=== PATIENT | female | born 1950 | race Hispanic/Latino ===

== ENCOUNTER 2018-11-27 11:33 | Emergency (ER) | payer MEDICARE, OTHER ==
[2018-11-27 12:29] VITALS: RESP 18; BMI 25.0
--- NOTE | 2018-11-27 12:42 | ED PDOC ---
Arrival/HPI - General Chief Complaint: Back Pain Time Seen by Provider: 11/27/18 11:55 Historian: Patient - History of Present Illness Narrative History of Present Illness (Text): 11/27/18 12:40 68yo female with pmhx of hypertension who present via EMS with complaint of lower back pain since last night. Notes pain started while laying down. Describes pain as crampy. No relieving/exacerbating factors. States she took a left over muscle relaxer from 5years ago this morning without relieve. She denies saddle anesthesia, focal weakness, urinary symptoms, hematuria, urinary/fecal incontinence, ripping/tearing upper back pain, Past Medical History - Provider Review Nursing Documentation Reviewed: Yes - Reproductive Menopause: Yes - Cardiac Hx Cardiac Disorders: Yes Hx Hypertension: Yes - Pulmonary Hx Respiratory Disorders: No - Neurological Hx Neurological Disorder: Yes Hx Dizziness: Yes - HEENT Hx HEENT Disorder: Yes Other/Comment: Use eyeglasses - Renal Hx Renal Disorder: No - Endocrine/Metabolic Hx Endocrine Disorders: Yes Hx Diabetes Mellitus Type 2: Yes - Hematological/Oncological Hx Blood Disorders: No - Integumentary Hx Dermatological Disorder: No - Musculoskeletal/Rheumatological Hx Fractures: Yes (left shoulder fx 08/04/16) - Gastrointestinal Hx Gastrointestinal Disorders: No - Genitourinary/Gynecological Hx Genitourinary Disorders: No - Psychiatric Hx Psychophysiologic Disorder: No Hx Substance Use: No - Surgical History Hx Orthopedic Surgery: Yes (right knee fracture) Other/Comment: gastric sleeve. - Anesthesia Hx Anesthesia: Yes Hx Anesthesia Reactions: No Hx Malignant Hyperthermia: No Family/Social History - Physician Review Nursing Documentation Reviewed: Yes Family/Social History: Unknown Family HX Smoking Status: Heavy Smoker > 10 Cigarettes Daily Hx Alcohol Use: No Hx Substance Use: No Allergies/Home Meds Allergies/Adverse Reactions: Allergies No Known Allergies Allergy (Verified 11/27/18 12:25) Review of Systems - Physician Review All systems were reviewed & negative as marked: Yes - Review of Systems Constitutional: Normal Eyes: Normal ENT: Normal Respiratory: Normal Cardiovascular: Normal Gastrointestinal: Normal Genitourinary Female: Normal Musculoskeletal: Back Pain Skin: Normal Neurological: Normal Endocrine: Normal Hemo/Lymphatic: Normal Psychiatric: Normal Physical Exam Vital Signs Reviewed: Yes Vital Signs Temp Pulse Resp BP Pulse Ox 11/27/18 11:34 98.3 F 74 18 161/75 H 100 Temperature: Afebrile Blood Pressure: Normal Pulse: Regular Respiratory Rate: Normal Appearance: Positive for: Well-Appearing, Non-Toxic, Comfortable Pain Distress: None Mental Status: Positive for: Alert and Oriented X 3 - Systems Exam Head: Present: Atraumatic, Normocephalic Pupils: Present: PERRL Extroacular Muscles: Present: EOMI Conjunctiva: Present: Normal Mouth: Present: Moist Mucous Membranes Neck: Present: Normal Range of Motion Respiratory/Chest: Present: Clear to Auscultation, Good Air Exchange. No: Respiratory Distress, Accessory Muscle Use Cardiovascular: Present: Regular Rate and Rhythm, Normal S1, S2. No: Murmurs Abdomen: No: Tenderness, Distention, Peritoneal Signs Back: Present: Normal Inspection, Midline Tenderness. No: Paraspinal Tenderness, Pain with Leg Raise Upper Extremity: Present: Normal Inspection. No: Cyanosis, Edema Lower Extremity: Present: Normal Inspection. No: Edema Neurological: Present: GCS=15, CN II-XII Intact, Speech Normal Skin: Present: Warm, Dry, Normal Color. No: Rashes Psychiatric: Present: Alert, Oriented x 3, Normal Insight, Normal Concentration Medical Decision Making ED Course and Treatment: 11/27/18 17:51 PT in ED for stated history. She was neurologically intact and ambulatory in ED Her pain was controlled in ED with medication LS CT IMPRESSION: Compression deformity at T11 and T12. Questionable mild compression deformity of L5. Multilevel small posterior bulging disc more prominent at L3-L4 and L4-L5 which resulting in mild spinal and neural foraminal narrowing. Degenerative changes at L5-S1 disc is space. Mild anterior spondylolisthesis of L4 relative to L5. Right renal calculi without evidence of hydronephrosis. UA negative EKG NSR @ 71bpm Result was DW the pt. She was DC home with NSAID. Referred to ortho. TRT ED for worsening symptoms. - RAD Interpretation Radiology Orders: 11/27/18 12:13 LUMBAR SPINE W/O CONTRAST [CT] Stat - Medication Orders Current Medication Orders: Discontinued Medications Ketorolac Tromethamine (Toradol) 30 mg IM STAT STA Stop: 11/27/18 12:14 Disposition/Present on Arrival - Present on Arrival Any Indicators Present on Arrival: No History of DVT/PE: No History of Uncontrolled Diabetes: No Urinary Catheter: No History of Decub. Ulcer: No History Surgical Site Infection Following: None - Disposition Have Diagnosis and Disposition been Completed?: Yes Diagnosis: Back pain Disposition: HOME/ ROUTINE Disposition Time: 14:30 Patient Plan: Discharge Condition: STABLE Discharge Instructions (ExitCare): Low Back Pain (DC) Additional Instructions: Follow up with your doctor Return to ED for any new or worsening symptom Prescriptions: Naproxen [Naprosyn] 500 mg PO BID #20 tab Referrals: Leander Morgan III, MD [Medical Doctor] - Follow up with primary Forms: [employer] ([place]ian)
--- NOTE | 2018-11-27 13:26 | CT ---
Date of service: 11/27/2018 PROCEDURE: CT Lumbar Spine without contrast HISTORY: back pain COMPARISON: None available. TECHNIQUE: Axial computed tomography images were obtained of the lumbar spine without the use of intravenous contrast. Coronal and sagittal reformatted images were created and reviewed. Radiation dose: Total exam DLP = 2138.06 mGy-cm. This CT exam was performed using one or more of the following dose reduction techniques: Automated exposure control, adjustment of the mA and/or kV according to patient size, and/or use of iterative reconstruction technique. FINDINGS: VERTEBRAE: There is a age indeterminate cpby-rb-zaokhkhf compression deformity at the mid and upper portion of T12 vertebral body. There is a mild compression deformity of T11. Possible mild compression deformity of L5. DISCS/SPINAL CANAL/NEURAL FORAMINA: L1-2: Unremarkable. L2-3: Unremarkable. L3-4: There is a small posterior bulging disc associated with posterior ligament and facet joint hypertrophy which resulting in cuyu-fr-ekyzvyzr spinal stenosis. L4-5: There is mild anterior spondylolisthesis of L4 relative to L5 noted. There is small posterior bulging disc associated with posterior ligament and facet joint hypertrophy which resulting in bcrx-ce-brffzxlu spinal stenosis. L5-S1: There is a small bulging disc without evidence of significant spinal or neural foraminal narrowing. PARASPINAL SOFT TISSUES: There is large cystic lesion exophytic from the right kidney noted. Foci of calcification noted in the right kidney. No evidence of hydronephrosis. OTHER FINDINGS: None. IMPRESSION: Compression deformity at T11 and T12. Questionable mild compression deformity of L5. Multilevel small posterior bulging disc more prominent at L3-L4 and L4-L5 which resulting in mild spinal and neural foraminal narrowing. Degenerative changes at L5-S1 disc is space. Mild anterior spondylolisthesis of L4 relative to L5. Right renal calculi without evidence of hydronephrosis.
[2018-11-27 14:13] LABS: URINE APPEARANCE CLEAR (CLEAR); URINE BILIRUBIN NEGATIVE (NEGATIVE); URINE BLOOD NEGATIVE (NEGATIVE); URINE COLOR YELLOW (YELLOW); URINE GLUCOSE (UA) NEGATIVE (NEGATIVE); URINE LEUKOCYTE ESTERASE NEGATIVE Leu/uL (NEGATIVE); URINE PROTEIN NEGATIVE mg/dL (<30 mg/dL); URINE UROBILINOGEN 0.2 E.U./dL (<1 E.U./dL)
[2018-11-27 14:26] VITALS: O2SAT 97
[2018-11-27 15:06] VITALS: BP 166/59; PULSE 72; TEMP 98
--- NOTE | 2018-11-27 22:41 | CARD ---
APPROVED REPORT Date of service: 11/27/2018 EKG Measurement Heart [id number] <Conclusion> Normal sinus rhythm Normal ECG
== END 2018-11-27 15:06 | disposition home or self-care (01) ==
LOC: ED 11:33
DX: M54.5 Low back pain (principal); E11.9 Type 2 diabetes mellitus without complications; I10 Essential (primary) hypertension; F17.210 Nicotine dependence, cigarettes, uncomplicated
CPT/HCPCS: 72131; 81003; 93005; 96372; 99283; J1885